=== PATIENT | female | born 1945 | race Caucasian/White ===

== ENCOUNTER 2022-06-02 15:43 | Emergency (ER) | payer OTHER, MEDICAID ==
[~2022-06-02] VITALS: Ht 165.1 cm; Wt 100.2 kg
[2022-06-02 15:50] VITALS: BP 132/90
[2022-06-02] MEDS ORDERED: TRIAMCINOLONE 0.5% CRM 15 GM TUBE TP ONE (15:55)
[2022-06-02] MEDS ORDERED: diphenhydrAMINE 50 MG CAP PO ONE (15:55)
[2022-06-02] MEDS ORDERED: DIPHENHYDRAMINE HCL/ZINC ACET 28 GM TUBE TP ONE (15:55)
[2022-06-02] MEDS ORDERED: HYDRAGUARD CREAM TP ONE (15:55)
[2022-06-02] MEDS ORDERED: OINT1OIN48 TP (16:08)
[2022-06-02] MEDS ORDERED: DIPH25TA53 PO (16:08)
[2022-06-02] MEDS ORDERED: BACI1PAC6 TP (16:08)
[2022-06-02] MEDS ORDERED: KEN.1C80 TP (16:08)
--- NOTE | 2022-06-02 16:45 | NUR ---
77YR OLD FEMALE FROM [facility] C/O RASH TO ALISON ARMS. PT IS SEEN AND DC UBER TO TOBACCO [facility]ER PT AND RETURN TO FACILITY
== END 2022-06-02 16:45 ==
LOC: MED 15:43
DX: L30.8 Other specified dermatitis (principal); F03.90 Unspecified dementia, unspecified severity, without behavioral disturbance, psychotic disturbance, mood disturbance, and anxiety
CPT/HCPCS: 99283; Q0163